=== PATIENT | male | born 1965 | race Caucasian/White ===

== ENCOUNTER 2020-07-26 11:51 | Day surgery (SDCO) | payer OTHER ==
[2020-07-26 13:44] LABS: BASOPHIL 0.1 % (0-2); EOSINOPHIL 0.1 % (0-5); HCT 46.7 % (42.0-52.0); HGB 15.6 g/dl (13.2-18.0); LYMPHOCYTE 7.7 % (15-48); MCH 28.9 pg (25.0-31.0); MCHC 33.4 g/dL (32.0-36.0); MCV 86.6 fL (78.0-100.0); MONOCYTE 7.2 % (0-12); NEUTROPHIL 84.4 % (41-80); NRBC 0; PLT 147 K/uL (150-400); RBC 5.39 M/uL (4.70-6.00); RDW 13.4 % (11.5-14.0); WBC 20.1 K/uL (4.0-10.5)
[2020-07-26 13:45] LABS: BILIRUBIN NEGATIVE (NEGATIVE); BLOOD NEGATIVE Ery/uL (NEGATIVE); CLARITY CLEAR (CLEAR); COLOR YELLOW (YELLOW); GLUCOSE (U) NORMAL (NORMAL); LEUKOCYTES NEGATIVE Leu/uL (NEGATIVE); NITRITE NEGATIVE (NEGATIVE); PROTEIN NEGATIVE (NEGATIVE); SPECIFIC GRAVITY 1.015 (1.001-1.030); UROBILINOGEN 0.2 mg/dL (0.2-1.0); pH 8.5 (5.0-9.0)
[2020-07-26 14:16] LABS: ALBUMIN 3.8 g/dL (3.4-5.0); BILIRUBIN - TOTAL 1.2 mg/dL (0.2-1.0); BUN/CREAT RATIO (CALC) 14.1 RATIO; CREATININE 0.99 mg/dL (0.67-1.17); GLOBULIN (CALCULATION) 4.2 g/dL; POTASSIUM 3.5 mmol/L (3.5-5.1)
[2020-07-26 16:23] LABS: LACTIC ACID 1.5 mmol/L (0.4-1.9)
[2020-07-27] MEDS ORDERED: LIPITOR40 MG PO (00:30)
[2020-07-27] MEDS ORDERED: HCTZ25 MG PO (00:31)
[2020-07-27] MEDS ORDERED: PRINIVIL10 MG PO (00:31)
[2020-07-27] MEDS ORDERED: ACETAMINOPHEN500 M1 PO (10:49)
[2020-07-27] MEDS ORDERED: COLACE100 MG PO (10:49)
[2020-07-27] MEDS ORDERED: MOTRIN600 MG PO (10:49)
[2020-07-27] MEDS ORDERED: ZOFRAN4 M1 PO (10:49)
[2020-07-27] MEDS ORDERED: OXY-IR 5MG5 MG PO (10:49)
== END 2020-07-27 12:00 | disposition home or self-care (01) ==
LOC: FER 11:51 → FMS 17:19 → FSDC 17:19 → FMS 21:29
PROVIDERS: Nurse Practitioner Family; ADMIT Student in an Organized Health Care Education/Training Program
DX: K35.30 Acute appendicitis with localized peritonitis, without perforation or gangrene (principal); I10 Essential (primary) hypertension; E78.5 Hyperlipidemia, unspecified; N20.0 Calculus of kidney; Z79.899 Other long term (current) drug therapy; Z20.822 Contact with and (suspected) exposure to COVID-19
CPT/HCPCS: 36415; 80053; 81003; 82150; 83605; 83690; 85025; 87040; G0378; J1100; J1170; J1644; J1650; J1885; J2250; J2405; J2543; J2704; J2710; J3010; J7030; J7120; Q9967; U0002